=== PATIENT | female | born 1985 | race Caucasian/White ===

== ENCOUNTER 2017-12-30 19:36 | Emergency (ER) | payer OTHER ==
[2017-12-30 19:37] VITALS: BP 145/85; PULSE 71; RESP 16; TEMP 98.8; O2SAT 98
--- NOTE | 2017-12-30 21:29 | PD ---
HPI Chief Complaint: Oral / Dental Pain or Problem Time Seen by Provider: 21:08 Travel History International Travel<30 days: No Contact w/Intl Traveler<30days: No Traveled to known affect area: No History of Present Illness HPI 32-year-old female presents to the ED for evaluation of 2 day history of right lower jaw dental pain. Patient endorses an impacted wisdom tooth as well as dental caries in the area. Pain is constant, occasionally shooting. No alleviating or exacerbating factors reported. It radiates into the nose. She states that she "feels puffy." She denies fever, chills, nausea, vomiting, difficulty swallowing her own secretions, breathing difficulties. She treated at home with warm salt water gargles and NSAIDs with no improvement of symptoms. She states that she has follow-up with a dentist and X week. PFSH Past Medical History ?: Not Social History Tobacco Use: No Allergies-Medications (Allergen,Severity, Reaction): Coded Allergies: No Known Allergies (Unverified , 12/30/17) Review of Systems Except as stated in HPI: all other systems reviewed are Neg Physical Exam Narrative GENERAL: Well-nourished, well-developed white female in no acute distress. SKIN: Warm and dry. HEAD: Normocephalic. Atraumatic. EYES: No scleral icterus. No injection or drainage. PERRLA. EOMI. ENT: Pearly rendon tympanic membranes bilaterally. Nasal mucosa is moist. Oropharynx without erythema, edema or exudate. DENTAL: No missing teeth. Multiple dental caries. Tooth #32 is impacted. Tooth #31 has a large cavity and is loose. No drainable abscess noted. NECK: Supple, trachea midline. No JVD or lymphadenopathy. CARDIOVASCULAR: Regular rate and rhythm without murmurs, gallops, or rubs. RESPIRATORY: Breath sounds clear and equal bilaterally. No accessory muscle use. GASTROINTESTINAL: Abdomen soft, non-tender, nondistended. + Bowel sounds MUSCULOSKELETAL: No cyanosis, or edema. BACK: Nontender without obvious deformity. No CVA tenderness. Data Data Last Documented VS Vital Signs Date Time Temp Pulse Resp B/P (MAP) Pulse Ox O2 Delivery O2 Flow Rate FiO2 12/30/17 19:37 98.8 71 16 145/85 (105) 98 Room Air Orders Orders Penicillin V Potassium (Veetids) (12/30/17 21:30) Acetamin-Hydrocod 325-5 Mg (Garrison 5-325 (12/30/17 21:30) Ed Discharge Order (12/30/17 21:30) [facility] Medical Decision Making Medical Screen Exam Complete: Yes Emergency Medical Condition: Yes Differential Diagnosis Dental caries versus dental abscess versus impacted wisdom tooth versus dental fracture versus other Narrative Course 32-year-old female presents to the ED for evaluation of 2 day history of right mandibular dental pain. Patient endorses several dental problems including an impacted wisdom tooth. Patient afebrile on presentation. Physical exam reveals impaction of tooth #32. Tooth #31 is a large dental caries and is loose. No drainable abscess noted. This is dental abscess. Patient's prescribed penicillin VK 500 4 times a day 7 days. She is also prescribed a short course of anti-inflammatories. First dose of penicillin and it single dose and Garrison administered in the ED. Patient's instructed to take all the antibiotics as prescribed, follow up with a dentist. She was provided with a list of dental resources. She is stable and discharged home. Diagnosis Primary Impression: Dental abscess Additional Impression: Dental caries Referrals: Dentist Patient Instructions: Dental Abscess (ED), Dental Caries (ED), General Instructions Additional Instructions: Rest, hydrate. Take antibiotics as prescribed until every is pill gone. 800 mg ibuprofen 3 times a day to reduce pain and inflammation. Warm salt water gargles may also helped improve your symptoms. Follow-up with the dentist as planned. Return to the ED for worsening symptoms or any urgent or emergent medical condition. Med/Other Pt SpecificInfo: Prescription(s) given Disposition: DISCHARGE HOME Condition: Stable Michelle Mendoza Dec 30, 2017 21:29
[2017-12-30] MEDS ORDERED: PENICILLIN V POTASSIUM 500 MG TAB PO ONE (21:30)
[2017-12-30] MEDS ORDERED: ACETAMINOPHEN/HYDROcodone 325 MG/5 MG TAB PO ONE (21:30)
[2017-12-30] MEDS ORDERED: IBUP1TAB7 PO (21:38)
[2017-12-30] MEDS ORDERED: PENI500T PO (21:38)
== END 2017-12-30 22:24 | disposition home or self-care (01) ==
LOC: NEPK 19:36
DX: K04.7 Periapical abscess without sinus (principal); K02.9 Dental caries, unspecified
CPT/HCPCS: 99283